=== PATIENT | male | born 1975 | race African-American/Black ===

== ENCOUNTER 2020-03-22 02:04 | Emergency (ER) | payer MEDICARE, MEDICAID ==
[~2020-03-22] VITALS: Ht 165.1 cm; Wt 85.0 kg
[2020-03-22] MEDS ORDERED: HYDROMORPHONE HCL/PF 2MG/ML CPJ IV ONE (03:30)
[2020-03-22 03:53] LABS: CHLORIDE 107 mEq/L (98-107); HEMOGLOBIN. 8.5 g/dL (14.0-18.0); MEAN CORPUSCULAR VOLUME 87.9 fL (80.0-94.0); MEAN PLATELET VOLUME 9.4 fl (7.4-10.4); PLATELET 279 x1000/uL (130-400); RED BLOOD CELL COUNT 2.73 mill/uL (4.7-6.1); RED CELL DISTRIBUTION WIDTH 25.6 % (11.6-14.6)
[2020-03-22] MEDS ORDERED: DIPHENHYDRAMINE 50MG CAPSULE PO ONE (04:00)
[2020-03-22] MEDS ORDERED: CEFTRIAXONE 1 G PREMIX 50 ML IV ONE (06:00)
[2020-03-22] MEDS ORDERED: HYDROMORPHONE HCL/PF 2MG/ML CPJ IV SCH (06:00)
[2020-03-22] MEDS ORDERED: LACTATED RINGERS 1,000 ML IV SCH (06:15)
[2020-03-22 06:25] VITALS: BP 144/96
[2020-03-22 07:57] LABS: NUCLEATED RED BLOOD CELLS 9 /100 WBC
[2020-03-22 07:58] LABS: PLATELET ESTIMATE NORMAL
== END 2020-03-22 06:49 | disposition left against medical advice (07) ==
LOC: ER 02:04 → CANBEDREQ 10:18
DX: A41.89 Other specified sepsis (principal); U07.1 COVID-19; J12.82 Pneumonia due to coronavirus disease 2019; R65.20 Severe sepsis without septic shock; D57.00 Hb-SS disease with crisis, unspecified; D72.829 Elevated white blood cell count, unspecified; R07.89 Other chest pain; F12.10 Cannabis abuse, uncomplicated; Z87.828 Personal history of other (healed) physical injury and trauma
CPT/HCPCS: 36415; 71046; 80048; 83605; 84484; 85025; 85044; 85660; 87040; 93005; 96374; 96376; 99285; J1170; Q0163